=== PATIENT | male | born 1960 | race Caucasian/White ===

== ENCOUNTER 2016-08-29 17:37 | Inpatient (IN) | payer OTHER, MEDICAID ==
[~2016-08-29] VITALS: Ht 165.1 cm; Wt 72.5 kg
[2016-08-29 17:49] VITALS: BP 133/86
[2016-08-29] MEDS ORDERED: GABA-531 PO (19:33)
[2016-08-29] MEDS ORDERED: RISP1 PO (19:33)
[2016-08-29] MEDS ORDERED: PNEUMOCOCCAL VACCINE POLYVALENT 0.5 ML VIAL [PPSV23] IM ONE (19:45)
[2016-08-29] MEDS: GABAPENTIN 300 MG CAPSULE PO SCH (19:50)
[2016-08-29 20:25] VITALS: BP 116/89
[2016-08-29] MEDS ORDERED: ONDANSETRON HCL 4 MG TABLET PO PRN (21:30)
[2016-08-29] MEDS ORDERED: ACETAMINOPHEN 325 MG TABLET PO PRN (21:30)
[2016-08-29] MEDS ORDERED: IBUPROFEN 600 MG TABLET PO PRN (21:30)
[2016-08-30] VITALS (11 sets, daily range): BP systolic 106–130; BP diastolic 62–82
[2016-08-30 07:52] LABS: BASOPHILS % (AUTO) 0.8 % (0.0-2.0); EOSINOPHILS % (AUTO) 6.1 % (1.0-6.0); HEMATOCRIT 40.6 % (41-53); HEMOGLOBIN 13.4 g/dL (13.5-17.5); LYMPHOCYTES # (AUTO) 1.3 K/uL (1.0-4.8); LYMPHOCYTES % (AUTO) 18.9 % (22.0-44.0); MEAN CORPUSCULAR HEMOGLOBIN 29.7 pg (26.0-34.0); MEAN CORPUSCULAR HGB CONC 33.1 G/dL (31.0-37.0); MEAN CORPUSCULAR VOLUME 90 fL (80-100); MONOCYTES # (AUTO) 0.8 K/uL (0.1-1.0); MONOCYTES % (AUTO) 11.4 % (2.0-9.0); NEUTROPHILS # (AUTO) 4.2 K/uL (1.8-7.7); NEUTROPHILS % (AUTO) 62.8 % (40.0-70.0); PLATELET COUNT (AUTO) 343 K/uL (150-450); RED BLOOD CELL COUNT(AUTO) 4.52 MIL/uL (4.50-5.90); WHITE BLOOD COUNT (AUTO) 6.7 K/uL (4.5-11.0)
[2016-08-30 08:20] LABS: ALANINE AMINOTRANSFERASE 35 U/L (12-78); ALBUMIN 3.5 g/dL (3.4-5.0); ANION GAP 5 mmol/L (8-16); ASPARTATE AMINOTRANSFERASE 25 U/L (15-37); BILIRUBIN,TOTAL 0.9 mg/dL (0.1-1.0); CALCIUM, TOTAL 8.5 mg/dL (8.8-10.5); CARBON DIOXIDE 31 mmol/L (22-29); CHLORIDE 94 mmol/L (98-107); CHOL/HDL RATIO 1.7 (4.2-7.3); CREATININE 0.82 mg/dL (0.60-1.30); GLOMERULAR FILTR. RATE CALC > 60 mL/min (>60); POTASSIUM 4.8 mmol/L (3.5-5.1); SODIUM SERUM 130 mmol/L (136-145); THYROID STIMULATING HORMONE 1.92 uIU/mL (0.36-3.74); TOTAL PROTEIN, SERUM 6.6 g/dL (6.4-8.2); UREA NITROGEN, BLOOD 13 mg/dL (7-18)
[2016-08-30] MEDS: GABAPENTIN 300 MG CAPSULE PO SCH ×3 (08:47→17:00)
[2016-08-30] MEDS ORDERED: LOPERAMIDE HCL 2 MG CAPSULE PO PRN ×2 (10:45→12:30)
[2016-08-30] MEDS ORDERED: ChlordiazePOXIDE HCL 25 MG CAPSULE PO PRN (10:45)
[2016-08-30] MEDS ORDERED: CYANOCOBALAMIN 1,000 MCG/ML VIAL IM ONE ×2 (10:45→12:30)
[2016-08-30] MEDS ORDERED: HydrOXYzine PAMOATE 50 MG CAPSULE PO PRN ×2 (10:45→12:30)
[2016-08-30] MEDS ORDERED: GuaiFENesin/D-METHORPHAN [SUGAR-FREE] 200-20MG/10 ML SYRUP UDCUP PO PRN ×2 (10:45→12:30)
[2016-08-30] MEDS ORDERED: MAG HYDROX/AL HYDROX/SIMETH ES 30 ML SUSPENSION UDCUP PO PRN (12:30)
[2016-08-30] MEDS ORDERED: ACETAMINOPHEN 325 MG TABLET PO PRN (12:30)
[2016-08-30] MEDS ORDERED: DIAZEPAM 10 MG TABLET PO ONE (12:30)
[2016-08-30] MEDS ORDERED: PROMETHAZINE HCL 25 MG TABLET PO PRN (12:30)
[2016-08-30] MEDS ORDERED: MAGNESIUM HYDROXIDE SUSPENSION 30 ML UDCUP PO PRN (12:30)
[2016-08-30] MEDS ORDERED: THIAMINE HCL 100 MG TABLET PO SCH (17:00)
[2016-08-30] MEDS: CarBAMazepine 200 MG TABLET PO SCH (17:00)
[2016-08-30] MEDS: DIAZEPAM 10 MG TABLET PO PRN ×2 (17:18→21:42)
[2016-08-30] MEDS: THIAMINE HCL 100 MG TABLET PO SCH (17:19)
[2016-08-30] MEDS: RisperiDONE 1 MG TABLET PO SCH (21:32)
[2016-08-31 01:00] VITALS: BP 129/95
[2016-08-31 04:03] VITALS: BP 117/78
[2016-08-31 06:17] VITALS: BP 106/71
[2016-08-31] MEDS: LEVOTHYROXINE SODIUM 25 MCG TABLET PO SCH (06:37)
[2016-08-31] MEDS ORDERED: ChlordiazePOXIDE HCL 25 MG CAPSULE PO PRN (07:00)
[2016-08-31] MEDS ORDERED: DIAZEPAM 10 MG TABLET PO PRN (07:00)
[2016-08-31 08:13] VITALS: BP 102/62
[2016-08-31] MEDS ORDERED: MULTIVITAMINS WITH MINERALS, THERAPEUTIC TABLET PO SCH (09:00)
[2016-08-31] MEDS ORDERED: ChlordiazePOXIDE HCL 25 MG CAPSULE PO SCH (09:00)
[2016-08-31] MEDS ORDERED: FOLIC ACID 1 MG TABLET PO SCH (09:00)
[2016-08-31] MEDS: CarBAMazepine 200 MG TABLET PO SCH ×2 (09:14→16:54)
[2016-08-31] MEDS: GABAPENTIN 300 MG CAPSULE PO SCH ×3 (09:14→17:00)
[2016-08-31] MEDS: NALTREXONE HCL 50 MG TABLET PO SCH (09:14)
[2016-08-31] MEDS: FOLIC ACID 1 MG TABLET PO SCH (09:15)
[2016-08-31] MEDS: THIAMINE HCL 100 MG TABLET PO SCH ×2 (09:15→16:54)
[2016-08-31] MEDS: MULTIVITAMINS WITH MINERALS, THERAPEUTIC TABLET PO SCH (09:15)
[2016-08-31] MEDS: DIAZEPAM 10 MG TABLET PO SCH ×4 (09:15→20:54)
[2016-08-31 13:23] VITALS: BP 102/62
[2016-08-31 16:19] VITALS: BP 117/77
[2016-08-31] MEDS: RisperiDONE 1 MG TABLET PO SCH (20:54)
[2016-08-31] MEDS ORDERED: GABAPENTIN 300 MG CAPSULE PO SCH (21:00)
[2016-09-01 00:46] VITALS: BP 115/70
[2016-09-01] MEDS: LEVOTHYROXINE SODIUM 25 MCG TABLET PO SCH (06:31)
[2016-09-01] MEDS: MULTIVITAMINS WITH MINERALS, THERAPEUTIC TABLET PO SCH (09:00)
[2016-09-01] MEDS: CarBAMazepine 200 MG TABLET PO SCH (09:00)
[2016-09-01] MEDS: THIAMINE HCL 100 MG TABLET PO SCH (09:00)
[2016-09-01] MEDS: NALTREXONE HCL 50 MG TABLET PO SCH (09:00)
[2016-09-01] MEDS: FOLIC ACID 1 MG TABLET PO SCH (09:00)
[2016-09-01] MEDS: DIAZEPAM 10 MG TABLET PO SCH ×2 (09:42→13:00)
[2016-09-01 11:45] VITALS: BP 140/86
[2016-09-01 11:46] VITALS: BP 140/86
[2016-09-01] MEDS ORDERED: CARB200T6 PO ×2 (13:12→13:29)
[2016-09-01] MEDS ORDERED: GABA-531 PO ×2 (13:12→13:29)
[2016-09-01] MEDS ORDERED: RISP1 PO ×2 (13:12→13:29)
[2016-09-01] MEDS ORDERED: NALT50 PO (13:12)
[2016-09-01] MEDS ORDERED: LEVO25TA9 PO (13:29)
[2016-09-01] MEDS ORDERED: NALT50TA10 PO (13:29)
[2016-09-02] MEDS ORDERED: DIAZEPAM 5 MG TABLET PO PRN (07:00)
[2016-09-02] MEDS ORDERED: ChlordiazePOXIDE HCL 10 MG CAPSULE PO PRN (07:00)
[2016-09-02] MEDS ORDERED: ChlordiazePOXIDE HCL 10 MG CAPSULE PO SCH (09:00)
[2016-09-02] MEDS ORDERED: DIAZEPAM 5 MG TABLET PO SCH (09:00)
[2016-09-02] MEDS ORDERED: LOPERAMIDE HCL 2 MG CAPSULE PO PRN (12:30)
[2016-09-03] MEDS ORDERED: ChlordiazePOXIDE HCL 10 MG CAPSULE PO PRN (07:00)
[2016-09-03] MEDS ORDERED: DIAZEPAM 5 MG TABLET PO PRN (07:00)
== END 2016-09-01 15:41 | disposition home or self-care (01) | DRG 885 ==
LOC: B2X 18:00 → EDSTATUS 19:45
PROVIDERS: ADMIT Psychiatry & Neurology Psychiatry; ATTEND Psychiatry & Neurology Psychiatry
DX: F25.9 Schizoaffective disorder, unspecified (principal); E87.1 Hypo-osmolality and hyponatremia; I10 Essential (primary) hypertension; F90.9 Attention-deficit hyperactivity disorder, unspecified type; F42.9 Obsessive-compulsive disorder, unspecified; F19.10 Other psychoactive substance abuse, uncomplicated; F10.20 Alcohol dependence, uncomplicated; Y90.0 Blood alcohol level of less than 20 mg/100 ml; F95.2 Tourette's disorder; E03.9 Hypothyroidism, unspecified; D64.9 Anemia, unspecified; G40.901 Epilepsy, unspecified, not intractable, with status epilepticus; Z81.1 Family history of alcohol abuse and dependence; Z83.79 Family history of other diseases of the digestive system; Z91.5 Personal history of self-harm; Z28.21 Immunization not carried out because of patient refusal
CPT/HCPCS: 84439; 84443; G0480; J3420; Q0162

== ENCOUNTER 2016-12-20 20:55 | Emergency (ER) | payer MEDICARE, OTHER ==
[~2016-12-20] VITALS: Ht 165.1 cm; Wt 72.7 kg
[~2016-12-20 20:55] MED LIST: CARB200T6 PO; GABA-531 PO; LEVO25TA9 PO; NALT50 PO; NALT50TA10 PO; RISP1 PO
[2016-12-20 21:49] LABS: BASOPHILS % (AUTO) 0.3 % (0.0-2.0); EOSINOPHILS % (AUTO) 1.7 % (1.0-6.0); HEMATOCRIT 40.6 % (41-53); HEMOGLOBIN 13.8 g/dL (13.5-17.5); LYMPHOCYTES # (AUTO) 0.9 K/uL (1.0-4.8); LYMPHOCYTES % (AUTO) 13.8 % (22.0-44.0); MEAN CORPUSCULAR HEMOGLOBIN 30.9 pg (26.0-34.0); MEAN CORPUSCULAR HGB CONC 33.9 G/dL (31.0-37.0); MEAN CORPUSCULAR VOLUME 91 fL (80-100); MONOCYTES # (AUTO) 0.4 K/uL (0.1-1.0); MONOCYTES % (AUTO) 6.3 % (2.0-9.0); NEUTROPHILS # (AUTO) 5.1 K/uL (1.8-7.7); NEUTROPHILS % (AUTO) 77.9 % (40.0-70.0); PLATELET COUNT (AUTO) 281 K/uL (150-450); RED BLOOD CELL COUNT(AUTO) 4.46 MIL/uL (4.50-5.90); RED CELL DISTRIBUTION WIDTH 14.5 % (11.5-14.5); WHITE BLOOD COUNT (AUTO) 6.6 K/uL (4.5-11.0)
[2016-12-20 22:01] LABS: ANION GAP 14 mmol/L (8-16); CALCIUM, TOTAL 8.4 mg/dL (8.8-10.5); CARBON DIOXIDE 25 mmol/L (22-29); CHLORIDE 104 mmol/L (98-107); CREATININE 0.93 mg/dL (0.60-1.30); GLOMERULAR FILTR. RATE CALC > 60 mL/min (>60); POTASSIUM 3.9 mmol/L (3.5-5.1); SODIUM SERUM 143 mmol/L (136-145); UREA NITROGEN, BLOOD 10 mg/dL (7-18)
[2016-12-20 22:08] LABS: ALANINE AMINOTRANSFERASE 64 U/L (12-78); ALBUMIN 3.6 g/dL (3.4-5.0); ASPARTATE AMINOTRANSFERASE 73 U/L (15-37); BILIRUBIN,TOTAL 0.4 mg/dL (0.1-1.0); TOTAL PROTEIN, SERUM 7.2 g/dL (6.4-8.2)
[2016-12-20] MEDS ORDERED: ChlordiazePOXIDE HCL 25 MG CAPSULE PO ONE (23:30)
[2016-12-20 23:41] VITALS: BP 127/73
== END 2016-12-20 23:44 | disposition home or self-care (01) ==
LOC: EMS 20:56
DX: F10.229 Alcohol dependence with intoxication, unspecified (principal); K70.30 Alcoholic cirrhosis of liver without ascites; F41.9 Anxiety disorder, unspecified; F15.90 Other stimulant use, unspecified, uncomplicated
CPT/HCPCS: 36415; 80053; 80307; 85025; 99284; G0480